=== PATIENT | male | born 1960 | race Caucasian/White ===

== ENCOUNTER 2017-10-14 10:07 | Observation (INO) | payer OTHER ==
[~2017-10-14] VITALS: Ht 188 cm; Wt 119.6 kg
[~2017-10-14 10:07] MED LIST: CLINDAMYCIN HC300 MG PO; TRAMADOL HCL50 MG PO
[2017-10-14 11:09] LABS: HEMATOCRIT 33.2 % (38.0-50.0); HEMOGLOBIN 10.9 G/DL (12.5-16.6); MCH 27.9 PG (29.0-34.0); MCHC 32.8 G/DL (30.0-36.0); MCV 85.1 FL (86-99); PLATELET COUNT 326 K/uL (156-360); RBC DIS.WIDTH-CV 18.2 % (11.8-14.6); RBC DIS.WIDTH-SD 56.1 % (39-53); WHITE BLOOD COUNT 6.1 K/uL (4.1-10.2)
[2017-10-14 11:23] LABS: CHLORIDE 102 mEq/L (99-109); POTASSIUM 3.8 mEq/L (3.7-5.4); SODIUM 136 mEq/L (136-147)
[2017-10-14 11:24] LABS: GLUCOSE 123 mg/dL (70-99)
[2017-10-14 11:28] LABS: CREATININE 0.6 mg/dL (0.6-1.3); GFR ESTIMATE (CALCULATED) > 59 mL/min/ (58.99-99999)
[2017-10-14 11:29] LABS: UREA NITROGEN (BUN) 7 mg/dL (9-23)
[2017-10-14 11:35] LABS: TROP-I INTERPRETATION NEGATIVE; TROPONIN-I < 0.01 ng/mL (0.0-0.30)
[2017-10-14] MEDS ORDERED: COREG25 M1 PO (12:32)
[2017-10-14] MEDS ORDERED: LISINOPRIL10 MG PO (12:32)
[2017-10-14] MEDS ORDERED: ASPIR-LOW81 MG PO (12:33)
[2017-10-14] MEDS ORDERED: CARTIA XT240 MG PO (12:33)
[2017-10-14] MEDS ORDERED: MULTI VITAMIN1 EACH PO (12:33)
[2017-10-14] MEDS ORDERED: DOXAZOSIN MESYLA8 MG PO (12:33)
[2017-10-14 19:16] LABS: TROP-I INTERPRETATION NEGATIVE; TROPONIN-I < 0.01 ng/mL (0.0-0.30)
[2017-10-14 20:00] VITALS: BP 139/74
[2017-10-15 00:15] VITALS: BP 154/82
[2017-10-15 01:04] LABS: TROP-I INTERPRETATION NEGATIVE; TROPONIN-I 0.03 ng/mL (0.0-0.30)
[2017-10-15 04:22] VITALS: BP 167/79
[2017-10-15 05:58] LABS: CHLORIDE 104 MEQ/L (99-109); CREATININE 0.6 MG/DL (0.6-1.3); GFR ESTIMATE (CALCULATED) > 59 mL/min/ (58.99-99999); GLUCOSE 123 mg/dL (70-99); POTASSIUM 3.4 MEQ/L (3.7-5.4); SODIUM 140 MEQ/L (136-147); UREA NITROGEN (BUN) 6 mg/dL (9-23)
[2017-10-15 07:16] VITALS: BP 162/87
== END 2017-10-15 12:35 | disposition home or self-care (01) ==
LOC: EME 10:07 → EDOF 12:09 → 5WEST 12:09 → ENRESERV 12:11 → 5WEST 14:39 → ENPENDDIS 10-15 → 5WEST 10-15 12:35
PROVIDERS: Internal Medicine
DX: R07.89 Other chest pain (principal); C80.1 Malignant (primary) neoplasm, unspecified; C79.51 Secondary malignant neoplasm of bone; K76.9 Liver disease, unspecified; R06.09 Other forms of dyspnea; D63.0 Anemia in neoplastic disease; I48.2 Chronic atrial fibrillation; I10 Essential (primary) hypertension; E11.9 Type 2 diabetes mellitus without complications; I31.3 Pericardial effusion (noninflammatory); I71.2 Thoracic aortic aneurysm, without rupture; I51.7 Cardiomegaly; R59.1 Generalized enlarged lymph nodes; I34.0 Nonrheumatic mitral (valve) insufficiency
CPT/HCPCS: 71046; 71275; 80048; 83880; 84484; 85027; 93005; 93306; 99281; 99284; G0378

== ENCOUNTER → 2018-01-01 | Outpatient (CLI) | payer BC ==
[~2018-01-01] MED LIST changes: +ASPIR-LOW81 MG PO; +CARTIA XT240 MG PO; +COREG25 M1 PO; +DOXAZOSIN MESYLA8 MG PO; +LISINOPRIL10 MG PO; +MULTI VITAMIN1 EACH PO
== END | disposition home or self-care (01) ==
LOC: PICC 08:50
DX: C7A.8 Other malignant neuroendocrine tumors (principal); C79.51 Secondary malignant neoplasm of bone
CPT/HCPCS: 71045; 76937

== ENCOUNTER 2018-01-18 18:00 | Emergency (ER) | payer BC ==
[~2018-01-18] VITALS: Ht 188 cm; Wt 99.7 kg
[2018-01-18 18:30] LABS: HEMATOCRIT 33.1 % (38.0-50.0); HEMOGLOBIN 11.3 G/DL (12.5-16.6); MCH 30.3 PG (29.0-34.0); MCHC 34.1 G/DL (30.0-36.0); MCV 88.7 FL (86-99); PLATELET COUNT 217 K/uL (156-360); RBC DIS.WIDTH-CV 21.3 % (11.8-14.6); RBC DIS.WIDTH-SD 67.5 % (39-53); RED BLOOD COUNT 3.73 M/uL (4.00-5.50)
[2018-01-18 18:33] LABS: BASOPHIL (%) 0.7 % (0-1); EOSINOPHIL (%) 0.8 % (0-5); EOSINOPHIL COUNT 0.1 K/uL (0-0.3); IMMATURE GRANULOCYTE (%) 0.3 % (0.0-0.7); LYMPHOCYTE (%) 13.9 % (15-42); LYMPHOCYTE COUNT 0.8 K/uL (1.0-2.8); MONOCYTE (%) 9.5 % (3-12); MONOCYTE COUNT 0.6 K/uL (0-0.8); NEUTROPHIL (%) 74.8 % (45-76); NEUTROPHIL COUNT 4.5 K/uL (1.8-6.4)
[2018-01-18 18:36] LABS: INTER. NORMALIZED RATIO 1.4
[2018-01-18 18:37] LABS: CHLORIDE 103 mEq/L (99-109); POTASSIUM 3.6 mEq/L (3.7-5.4); SODIUM 139 mEq/L (136-147)
[2018-01-18 18:38] LABS: MAGNESIUM 1.6 mg/dL (1.3-2.7)
[2018-01-18 18:39] LABS: PTT 32.1 SEC (25-37)
[2018-01-18 18:40] LABS: GLUCOSE 106 mg/dL (70-99)
[2018-01-18 18:43] LABS: CREATININE 0.6 mg/dL (0.6-1.3); GFR ESTIMATE (CALCULATED) > 59 mL/min/ (58.99-99999)
[2018-01-18 18:44] LABS: UREA NITROGEN (BUN) 11 mg/dL (9-23)
[2018-01-18 18:52] LABS: TROP-I INTERPRETATION NEGATIVE; TROPONIN-I < 0.01 ng/mL (0.0-0.30)
[2018-01-18 19:44] LABS: ALBUMIN 3.1 g/dL (3.2-4.8)
[2018-01-18 19:47] LABS: TOTAL PROTEIN 6.1 g/dL (6.4-8.3)
[2018-01-18 19:48] LABS: TOTAL BILIRUBIN 1.3 mg/dL (0.0-1.0)
[2018-01-18 19:49] LABS: ALKALINE PHOSPHATASE 253 IU/L (3-129)
[2018-01-18 19:52] LABS: AST (GOT) 48 IU/L (2-34); DIRECT BILIRUBIN 0.9 mg/dL (0.0-0.3)
[2018-01-18 19:53] LABS: ALT (GPT) 18 IU/L (3-49)
[2018-01-18] MEDS ORDERED: LACTULOSE10 GM/151 PO (21:48)
[2018-01-18 22:20] VITALS: BP 146/92
== END 2018-01-18 22:21 | disposition home or self-care (01) ==
LOC: EME 18:00
PROVIDERS: Emergency Medicine
DX: K72.90 Hepatic failure, unspecified without coma (principal); C34.90 Malignant neoplasm of unspecified part of unspecified bronchus or lung; C78.7 Secondary malignant neoplasm of liver and intrahepatic bile duct; C79.51 Secondary malignant neoplasm of bone; I48.91 Unspecified atrial fibrillation; E11.9 Type 2 diabetes mellitus without complications; I10 Essential (primary) hypertension; Z79.82 Long term (current) use of aspirin
CPT/HCPCS: 70450; 71045; 71275; 80048; 80076; 81003; 82140; 83735; 83880; 84484; 85025; 85610; 85730; 93005; 99281; 99285; J1885

== ENCOUNTER → 2018-02-05 | Outpatient (CLI) | payer BC ==
[~2018-02-05] VITALS: Ht 188 cm; Wt 99.8 kg
[~2018-02-05] MED LIST changes: +LACTULOSE10 GM/151 PO; +LASIX20 MG PO
== END | disposition home or self-care (01) ==
LOC: SDC 10:28 → EDSTATUS 13:34 → AMB 13:34 → SDC 16:10
PROC: 0DJ08ZZ Inspection of Upper Intestinal Tract, Via Natural or Artificial Opening Endoscopic (ICD-10-PCS; principal; 2018-02-05)
DX: C75.9 Malignant neoplasm of endocrine gland, unspecified (principal); C78.7 Secondary malignant neoplasm of liver and intrahepatic bile duct; C79.51 Secondary malignant neoplasm of bone; I10 Essential (primary) hypertension; E11.9 Type 2 diabetes mellitus without complications; I25.10 Atherosclerotic heart disease of native coronary artery without angina pectoris; K21.9 Gastro-esophageal reflux disease without esophagitis; I48.91 Unspecified atrial fibrillation; Z79.82 Long term (current) use of aspirin; F41.1 Generalized anxiety disorder; Z98.84 Bariatric surgery status; Z53.09 Procedure and treatment not carried out because of other contraindication
CPT/HCPCS: J2250; J3010; J7643

== ENCOUNTER 2018-03-14 00:01 | Inpatient (IN) | payer BC ==
[~2018-03-14] VITALS: Ht 185.4 cm; Wt 106.0 kg
[~2018-03-14 00:01] MED LIST changes: -LASIX20 MG PO; +LASIX40 MG PO
[2018-03-14 00:50] LABS: HEMATOCRIT 25.4 % (38.0-50.0); MCH 35.2 PG (29.0-34.0); MCHC 35.4 G/DL (30.0-36.0); MCV 99.2 FL (86-99); PLATELET COUNT 224 K/uL (156-360); RBC DIS.WIDTH-CV 22.3 % (11.8-14.6); RED BLOOD COUNT 2.56 M/uL (4.00-5.50)
[2018-03-14 00:53] LABS: BASOPHIL (%) 0 % (0-1); EOSINOPHIL (%) 0.8 % (0-5); IMMATURE GRANULOCYTE (%) 0.8 % (0.0-0.7); LYMPHOCYTE (%) 8.9 % (15-42); LYMPHOCYTE COUNT 0.5 K/uL (1.0-2.8); MONOCYTE (%) 5.2 % (3-12); MONOCYTE COUNT 0.3 K/uL (0-0.8); NEUTROPHIL (%) 84.3 % (45-76); NEUTROPHIL COUNT 4.2 K/uL (1.8-6.4)
[2018-03-14 01:02] LABS: ALBUMIN 2.1 g/dL (3.2-4.8); CHLORIDE 106 mEq/L (99-109); POTASSIUM 3.8 mEq/L (3.7-5.4); SODIUM 139 mEq/L (136-147)
[2018-03-14 01:04] LABS: GLUCOSE 102 mg/dL (70-99)
[2018-03-14 01:05] LABS: TOTAL PROTEIN 4.9 g/dL (6.4-8.3)
[2018-03-14 01:06] LABS: TOTAL BILIRUBIN 1.9 mg/dL (0.0-1.0)
[2018-03-14 01:08] LABS: ALKALINE PHOSPHATASE 246 IU/L (3-129); CREATININE 0.6 mg/dL (0.6-1.3); GFR ESTIMATE (CALCULATED) > 59 mL/min/ (58.99-99999)
[2018-03-14 01:09] LABS: UREA NITROGEN (BUN) 15 mg/dL (9-23)
[2018-03-14 01:10] LABS: AST (GOT) 32 IU/L (2-34)
[2018-03-14 01:11] LABS: ALT (GPT) 16 IU/L (3-49); LIPASE 6 U/L (1.0-51.0)
[2018-03-14 07:20] VITALS: BP 113/69
[2018-03-14] MEDS ORDERED: ATIVAN0.5 MG PO (13:15)
[2018-03-14] MEDS ORDERED: AMBIEN5 MG PO (13:15)
[2018-03-14 16:30] VITALS: BP 114/68
[2018-03-14 19:37] VITALS: BP 113/77
[2018-03-14 23:37] VITALS: BP 119/78
[2018-03-15 06:02] LABS: BASOPHIL (%) 0 % (0-1); EOSINOPHIL (%) 1.6 % (0-5); EOSINOPHIL COUNT 0.1 K/uL (0-0.3); HEMOGLOBIN 8.4 G/DL (12.5-16.6); IMMATURE GRANULOCYTE (%) 0.5 % (0.0-0.7); LYMPHOCYTE (%) 16.4 % (15-42); LYMPHOCYTE COUNT 0.6 K/uL (1.0-2.8); MCH 35.3 PG (29.0-34.0); MCV 100.8 FL (86-99); MONOCYTE (%) 5.2 % (3-12); MONOCYTE COUNT 0.2 K/uL (0-0.8); NEUTROPHIL (%) 76.3 % (45-76); NEUTROPHIL COUNT 2.9 K/uL (1.8-6.4); PLATELET COUNT 258 K/uL (156-360); RBC DIS.WIDTH-CV 22.3 % (11.8-14.6); RBC DIS.WIDTH-SD 81.8 % (39-53); RED BLOOD COUNT 2.38 M/uL (4.00-5.50); WHITE BLOOD COUNT 3.9 K/uL (4.1-10.2)
[2018-03-15 06:40] LABS: ALBUMIN 1.9 G/DL (3.2-4.8); ALKALINE PHOSPHATASE 224 IU/L (3-129); ALT (GPT) 12 IU/L (3-49); AST (GOT) 25 IU/L (2-34); CHLORIDE 106 MEQ/L (99-109); CREATININE 0.5 MG/DL (0.6-1.3); GFR ESTIMATE (CALCULATED) > 59 mL/min/ (58.99-99999); GLUCOSE 89 mg/dL (70-99); POTASSIUM 3.7 MEQ/L (3.7-5.4); SODIUM 139 MEQ/L (136-147); TOTAL BILIRUBIN 1.8 MG/DL (0.0-1.0); TOTAL PROTEIN 4.3 G/DL (6.4-8.3); UREA NITROGEN (BUN) 12 mg/dL (9-23)
[2018-03-15 07:22] VITALS: BP 125/69
[2018-03-15] MEDS ORDERED: ZOFRAN4 MG PO (09:00)
[2018-03-15] MEDS ORDERED: MORPHINE SULFAT15 MG PO (11:38)
== END 2018-03-15 13:45 | disposition home or self-care (01) | DRG 389 ==
LOC: EME → EDBD 00:01 → 5SOUTH 05:37 → EDOF 05:37 → ENRESERV 05:42 → 5SOUTH 07:00
PROVIDERS: Emergency Medicine; Internal Medicine; Physician Assistant
DX: K56.7 Ileus, unspecified (principal); I31.3 Pericardial effusion (noninflammatory); I48.1 Persistent atrial fibrillation; I95.9 Hypotension, unspecified; C7B.8 Other secondary neuroendocrine tumors; C7A.1 Malignant poorly differentiated neuroendocrine tumors; R53.1 Weakness; I10 Essential (primary) hypertension; E11.9 Type 2 diabetes mellitus without complications; K21.9 Gastro-esophageal reflux disease without esophagitis; G47.33 Obstructive sleep apnea (adult) (pediatric); G89.3 Neoplasm related pain (acute) (chronic); F12.929 Cannabis use, unspecified with intoxication, unspecified; Z98.84 Bariatric surgery status; Z79.82 Long term (current) use of aspirin
CPT/HCPCS: 70450; 71045; 74176; 80053; 81003; 82140; 82948; 83605; 83690; 85025; 87040; 93005; 93306; 99281; 99284; J1644; J2270; J7030; J7042